=== PATIENT | female | born 1955 | race Two or more races ===

== ENCOUNTER 2022-02-12 14:04 | Inpatient (IN) | payer OTHER ==
[~2022-02-12] VITALS: Ht 157.5 cm; Wt 49.9 kg
== END 2022-03-05 18:34 | DRG 444 ==
LOC: ER 14:04 → MEDJ 23:40
PROVIDERS: ADMIT Internal Medicine; ATTEND Internal Medicine
PROC: BW21YZZ Computerized Tomography (CT Scan) of Abdomen and Pelvis using Other Contrast (ICD-10-PCS; 2022-02-12)
PROC: 0W9G30Z Drainage of Peritoneal Cavity with Drainage Device, Percutaneous Approach (ICD-10-PCS; principal; 2022-02-14)
PROC: 0W9G30Z Drainage of Peritoneal Cavity with Drainage Device, Percutaneous Approach (ICD-10-PCS; 2022-02-20)
PROC: 02HV33Z Insertion of Infusion Device into Superior Vena Cava, Percutaneous Approach (ICD-10-PCS; 2022-02-22)
DX: K81.0 Acute cholecystitis (principal); K65.1 Peritoneal abscess; B96.29 Other Escherichia coli [E. coli] as the cause of diseases classified elsewhere; B95.4 Other streptococcus as the cause of diseases classified elsewhere; B96.89 Other specified bacterial agents as the cause of diseases classified elsewhere; K70.30 Alcoholic cirrhosis of liver without ascites; K52.89 Other specified noninfective gastroenteritis and colitis; Z20.822 Contact with and (suspected) exposure to COVID-19

== ENCOUNTER → 2022-04-09 06:45 | Outpatient (CLI) | payer OTHER | END | disposition home or self-care (01) | LOC: LAB 06:45 | DX: R10.84 Generalized abdominal pain (principal) ==

== ENCOUNTER 2022-04-09 07:53 | Outpatient (CLI) | payer OTHER | END 2022-04-09 07:57 | disposition home or self-care (01) | LOC: TOM 07:53 | DX: R10.84 Generalized abdominal pain (principal) | CPT/HCPCS: 74177; Q9965 ==

== ENCOUNTER → 2022-10-22 | Outpatient (CLI) | payer OTHER | END | disposition home or self-care (01) | LOC: SONOGRAMA 09:47 | PROVIDERS: ATTEND Surgery | DX: K80.20 Calculus of gallbladder without cholecystitis without obstruction (principal) ==

== ENCOUNTER 2022-11-13 07:21 | Outpatient (CLI) | payer OTHER | END 2022-11-13 07:22 | disposition home or self-care (01) | LOC: NUCLEAR 07:21 | PROVIDERS: ATTEND Surgery | DX: K80.20 Calculus of gallbladder without cholecystitis without obstruction (principal); K82.8 Other specified diseases of gallbladder | CPT/HCPCS: 78227; A9537; J2805 ==